=== PATIENT | female | born 2000 | race Caucasian/White ===

== ENCOUNTER 2023-11-28 13:33 | Inpatient (IN) ==
[2023-11-28] MEDS ORDERED: LIDOCAINE 1% LOCAL 20 ML VIAL INFIL PRN (13:40)
[2023-11-28] MEDS: LACTATED RINGER'S 1,000 ML IV PRN (14:00)
[2023-11-28 14:22] LABS: Hematocrit (blood only) 31.8 % (37.0-47.0); Hemoglobin 9.7 g/dl (12.0-16.0); Mean Corpuscular Hemoglobin 23.5 pg (25.0-34.0); Mean Corpuscular Hgb Conc 30.5 g/dL (32.0-36.0); Mean Corpuscular Volume 77.2 fL (80.0-100.0); Mean Platelet Volume 11.8 fL (9.4-12.4); Platelet Count 164 K/uL (130-400); RDW Coefficient of Variation 16.4 % (11.5-14.5); RDW Standard Deviation 45.3 fL (36.4-46.3); Red Blood Count 4.12 M/uL (4.20-5.40); White Blood Count 8.92 K/ul (4.8-10.8)
[2023-11-28] MEDS: LIDOCAINE 2%/EPINEPHRINE 1:200,000 20 ML PF ONE (15:17)
[2023-11-28] MEDS: SODIUM CHLORIDE 0.9% PF INJ 10 ML VIAL ONE (15:17)
[2023-11-28] MEDS: fentANYL 2 MCG/ML BUPIVacaine 0.125%-NSS 100ML BAG ONE (15:17)
[2023-11-28] MEDS: BUPIVACAINE 0.25% PF 30 ML VIAL ONE (15:17)
[2023-11-28] MEDS ORDERED: LIDOCAINE 2%/EPINEPHRINE 1:200,000 20 ML PF EPI STA (15:20)
[2023-11-28] MEDS ORDERED: SODIUM CHLORIDE 0.9% PF INJ 10 ML VIAL EPI PRN (15:20)
[2023-11-28] MEDS ORDERED: BUPIVACAINE 0.25% PF 30 ML VIAL EPI PRN (15:20)
[2023-11-28] MEDS ORDERED: ROPIVACAINE 0.5% PF 5 MG/ML 20 ML VIAL EPI PRN (15:20)
[2023-11-28] MEDS ORDERED: NALOXONE HCL 0.4 MG/1 ML VIAL/CARP IV PRN (15:20)
[2023-11-28] MEDS ORDERED: NALOXONE HCL 1 MG in SODIUM CHLORIDE 0.9% 1,000 ML IV PRN (15:20)
[2023-11-28] MEDS ORDERED: diphenhydrAMINE 50 MG/ML VIAL IV PRN (15:20)
[2023-11-28] MEDS ORDERED: fentANYL 2 MCG/ML BUPIVacaine 0.125%-NSS 100ML BAG EPI PRN (15:20)
[2023-11-28] MEDS ORDERED: ONDANSETRON INJ 2 MG/ML 2 ML VIAL IV PRN (15:20)
[2023-11-28] MEDS ORDERED: BUPIVACAINE 0.25% PF 30 ML VIAL EPI STA (15:20)
[2023-11-28] MEDS ORDERED: PROMETHAZINE HCL 6.25 MG in SODIUM CHLORIDE 0.9% 50 ML IV PRN (15:20)
[2023-11-28] MEDS ORDERED: fentaNYL citrate PF 100 MCG/2 ML VIAL EPI STA (15:20)
[2023-11-28] MEDS ORDERED: fentaNYL citrate PF 100 MCG/2 ML VIAL EPI PRN (15:20)
[2023-11-28] MEDS ORDERED: ePHEDrine sulfate 50 MG/ML AMP IV PRN (15:20)
[2023-11-28] MEDS ORDERED: LIDOCAINE 2% MPF LOCAL 5 ML VIAL EPI PRN (15:20)
[2023-11-28] MEDS ORDERED: SODIUM CHLORIDE 0.9% PF INJ 10 ML VIAL EPI STA (15:20)
[2023-11-28] MEDS ORDERED: NALBUPHINE HCL 5 MG in SYRINGE 0 ML IV PRN (15:20)
--- NOTE | 2023-11-28 15:20 | Anesthesiology Consultation ---
Date of Service November 28, 2023 Assessment & Plan Chart Review Chart Review: Patient NOT seen in Pre Admission Testing and Acceptable Risk for Labor Epidural Consults Requested none ASA ASA2 Proposed Anesthesia Anesthesia Type: Labor Epidural Risk / Benefits Reviewed With: PT / POA / Parent / Guardian, Accepts Plan and Informed Consent Obtained History Height/Weight Height: 5 ft 3 in Weight: 104.326 kg Allergies Allergy/AdvReac Type Severity Reaction Status Date / Time No Known Allergies Allergy Verified 11/26/23 15:00 Medications Home Medications Medication Instructions Recorded Confirmed Last Taken cetirizine 10 mg tablet (Zyrtec) 10 mg PO DAILY PRN Allergy Symptoms 10/28/23 11/28/23 11/28/23 09:00 duloxetine 30 mg capsule,delayed 30 mg PO DAILY 10/28/23 11/28/23 11/28/23 09:00 release (Cymbalta) vit 168-iron 27 mg-folic 1 cap PO DAILY 10/28/23 11/28/23 11/28/23 09:00 acid 800 mcg-omega3 235 mg capsule (One-A-Day -1) Active Medications Generic Name Dose Route Start Last Admin Trade Name Freq PRN Reason Stop Dose Admin Lactated Ringer's 1,000 mls @ 125 mls/hr 11/28/23 13:40 11/28/23 14:00 Lr IV 11/30/23 13:39 999 mls/hr .Q8H PRN Administration L&D Protocol Protocol Exercise / Class Metabolic Activity II 4-5 Yardwork/Stairs/Walk up hill Past Family History Family History (Updated 10/28/23 @ 09:14 by Gaye Bernard) Aunt Diabetes Hypertension Father Diabetes Hypertension Heart disease Blood clotting disorder Mother Breast cancer Diabetes Hypertension Liver disease Stroke Grandmother (Maternal) Breast cancer Other Myocardial infarction Past Surgical History Surgical History (Updated 10/28/23 @ 09:12 by Gaye Bernard) S/P wisdom tooth extraction Past Anesthesia History No Hx of Anesthesia Complications and No Family Hx of Anesthesia Complications History of PONV No Hx of PONV and No Hx of Motion Sickness Social History Smoking Status: Unknown if ever smoked Do You Dip or Chew Tobacco: No Hx Alcohol Use: No Hx Substance Use: No Physical Exam Vital Signs Last Vital Signs Temp 36.8 C 11/28/23 14:51 Pulse 90 11/28/23 15:17 Resp 18 11/28/23 14:51 BP 127/80 11/28/23 15:17 Pulse Ox 100 11/28/23 15:16 ENMT Mouth: no dentition abnormality Thyromental Distance: > or= 3.5 Finger Breadths Mallampati Class: II Neck normal visual inspection Respiratory normal respiratory effort Auscultation: lungs clear to auscultation bilaterally Cardiovascular Rate/Rhythm: regular rate and regular rhythm Psychiatric Orientation: alert Testing Laboratory Results 11/28/23 14:01
--- NOTE | 2023-11-28 15:36 | History & Physical Report ---
Date of Service November 28, 2023 Assessment & Plan (1) Encounter for induction of labor: Plan 23 y/o G 1 P0 37WGA presented for IOL Pitocin AROM as indicated Epidural PRN Monitor FHT Will need Rhogam 2nd dose after confirming baby's rhesus status. Admission and Anticipated Discharge Date Admission Date: November 28, 2023 History of Present Illness Chief Complaint: IOL Primary Care Provider: NO PCP 23 y/o female currently at 37WGA who is here for IOL. complicated by: LGA/Poly, Had regular appointments with OB Contractions irregular movement feeling them strong' No Fluid loss No Vaginal bleeding External FHT and external uterine monitors used: Category 1 tracing Labs: Lab Results OB Labs: Hepatitis B Surface Antigen Negative (Negative) 11/05/23 HIV (1&2) Ab and P24 Ag, 4th Gener Negative (Negative) 11/05/23 Labs Reviewed: Initial OB Labs Blood Type & RH A negative Antibody Screen Negative HCT/HGB39.5/13.6 [id number] Hep C IgG 13yrs+ Old Negative Pap Test NILM Chlamydia Negative Gonorrhea Negative Rubella Immune RPR Negative Urine Culture/Screen No Growth HBsAg HIV MCV83.8 QNatal Low risk CF negative 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 24-28 Week OB Labs (09/30/23) HCT/HGB34.0/11.4 Diabetes Screen (1hr)136 Antibody Screen Negative *RPR Non reactive Allergies Allergy/AdvReac Type Severity Reaction Status Date / Time banana Allergy Swelling Verified 11/28/23 16:21 of Lip/Tongue/Throat cantaloupe Allergy Swelling Verified 11/28/23 16:21 of Lip/Tongue/Throat cucumber Allergy Swelling Verified 11/28/23 16:21 of Lip/Tongue/Throat peach Allergy Swelling Verified 11/28/23 16:21 of Lip/Tongue/Throat pepper (genus Capsicum) Allergy Swelling Verified 11/28/23 16:22 of Lip/Tongue/Throat Home Medications Medication Instructions Recorded Confirmed Type cetirizine 10 mg tablet (Zyrtec) 10 mg PO DAILY PRN Allergy Symptoms 10/28/23 11/28/23 History duloxetine 30 mg capsule,delayed 30 mg PO DAILY 10/28/23 11/28/23 History release (Cymbalta) vit 168-iron 27 mg-folic 1 cap PO DAILY 10/28/23 11/28/23 History acid 800 mcg-omega3 235 mg capsule (One-A-Day -1) Patient History Medical History (Updated 11/28/23 @ 16:19 by Muna Olivera, ROSE) No known health problems Surgical History S/P wisdom tooth extraction Family History Aunt Diabetes Hypertension Father Diabetes Hypertension Heart disease Blood clotting disorder Mother Breast cancer Diabetes Hypertension Liver disease Stroke Grandmother (Maternal) Breast cancer Other Myocardial infarction Social History Smoking Status: Unknown if ever smoked Do You Dip or Chew Tobacco: No; Hx Alcohol Use: No Hx Substance Use: No Preferred Language: Lebanese Communication Ability: Effective Pearl Cutter Required: No Beliefs That Will Affect Care: None marital status: Single marital status details: Philip (26) [phone] Current Living Situation: Significant Other Current Living Situation Comment: lives alone, 3 dogs, current occupational status: unemployed Feels Safe at Home: Yes 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 No acute distress Cardiac: Regular rate and rhythm, no murmurs appreciated Respiratory: Lungs clear to auscultation bilaterally, No increased work of breathing Abdominal: Soft, non-tender, non-distended. Bowel sounds present. Gravid uterus. Extremities: 1+ lower extremity edema, calves non-tender bilaterally Genitourinary: OB Exam Abdomen: + vertex, + estimated weight (7-8 pounds) and + regular contractions Manual OB Exam: + cervical dilation 4 cm, + cervical effacement 100% and + station -2 OB Exam Monitor Tracing: + telecommunications support al FHT monitor used, + external uterine monitor used, + category I and + normal FHT variability Results & Data Vital Signs (Past 12 Hours) Vital Signs Temp Pulse Resp BP Pulse Ox 11/28/23 15:26 100 11/28/23 15:26 94 H 11/28/23 15:26 137/88 11/28/23 15:23 89 11/28/23 15:23 132/84 11/28/23 15:21 99 11/28/23 15:21 94 H 11/28/23 15:20 88 11/28/23 15:20 131/83 11/28/23 15:17 90 11/28/23 15:17 127/80 11/28/23 15:16 100 11/28/23 15:16 100 H 11/28/23 15:14 108 H 11/28/23 15:14 141/84 H 11/28/23 15:11 100 11/28/23 15:11 111 H 11/28/23 15:11 114 H 11/28/23 15:11 143/87 H 11/28/23 15:06 100 11/28/23 15:06 118 H 11/28/23 15:01 100 11/28/23 15:01 105 H 11/28/23 14:51 36.8 C 18 11/28/23 13:39 36.8 C 93 H 20 138/85 Code Status & VTE Plan VTE Prophylaxis Plan VTE Prophylaxis will be ordered: No Monitoring External Monitor 130/mod/+accel/-decel Tocodynamometer q5 Supervising Physician Co-Signing Physician Notes Resident Physician Supervision Note: I interviewed and examined the patient. Discussed with Dr. Coleman and agree with findings and plan as documented in the note. Any exceptions or clarifications are listed here: [None] Documented By: Ramila Etienne MD, FACOG Resident Activity Tracking Resident Involvement: Resident Care Provided Care Provided: OB Delivery
[2023-11-28] MEDS: fentaNYL citrate PF 100 MCG/2 ML VIAL ONE (15:54)
[2023-11-28] MEDS: ePHEDrine sulfate 50 MG/ML AMP ONE (15:54)
[2023-11-28] MEDS ORDERED: SODIUM CHLORIDE 0.9% 250 ML IV PRN (19:46)
[2023-11-28] MEDS: ACETAMINOPHEN 325 MG TAB PO PRN (20:42)
[2023-11-28] MEDS: OXYTOCIN 30 UNITS/NSS 30 UNITS/500 ML BAG IV PRN (21:59)
--- NOTE | 2023-11-28 22:19 | Anesthesia Procedure Note ---
Date of Service November 28, 2023 Anesthesia Post Epidural Note Vital Signs Vital Signs: Temp Pulse Resp BP Pulse Ox 36.6 C 124 H 18 134/71 99 11/28/23 19:30 11/28/23 22:16 11/28/23 21:00 11/28/23 22:16 11/28/23 22:16 Pain Intensity Abdomen: Pain Intensity: 2 Notes Mental Status: alert / awake / arousable Nausea / Vomiting: adequately controlled Pain: adequately controlled Airway Patency, RR, SpO2: stable & adequate BP & HR: stable & adequate Hydration State: stable & adequate Neuraxial Anesthesia: was administered and sensory block is resolving Anesthetic Complications: no major complications apparent and Pt Satisfied with anesthetic care Epidural: Removed without complications and With tip intact
[2023-11-28] MEDS ORDERED: oxyCODONE/ACETAMINOPHEN 5mg/325mg TAB PO PRN (22:23)
[2023-11-28] MEDS ORDERED: DIPHTHER/TETAN/PERTUS Vaccine (Tdap, Adol/Adult) 0.5mL IM ONE (22:23)
[2023-11-28] MEDS ORDERED: ACETAMINOPHEN 325 MG TAB PO PRN (22:23)
[2023-11-28] MEDS ORDERED: HYDROCORTISONE ACETATE 25 MG SUPP PR PRN (22:23)
[2023-11-28] MEDS ORDERED: bisacodyL 10 MG SUPP PR PRN (22:23)
[2023-11-28] MEDS ORDERED: OXYTOCIN 30 UNITS/NSS 30 UNITS/500 ML BAG IV PRN (22:23)
--- NOTE | 2023-11-28 22:56 | Delivery Summary ---
Vaginal Delivery Summary Date of Service November 28, 2023 Vaginal Delivery Summary and 1st Degree LAC Patient is a 23-year-old G1, P0 female EDC 12/16/2023 who presents at 37-3/7 weeks in active labor. She received effective epidural analgesia and membranes were ruptured for moderately stained meconium fluid. She progressed to full dilation with the urge to push. She pushed effectively over intact perineum for delivery of a viable female infant. After the head was delivered hyperflexion of the hips was performed to help to deliver the shoulders. The infant delivered easily and the rest the followed without difficulty. She was placed on the mother's abdomen for further attention and drying. After 1 minute the cord was clamped and cut. After cord blood was obtained, the placenta was expressed intact with a three-vessel cord. bleeding was controlled with dilute Pitocin and fundal massage. The first-degree perineal laceration was repaired with 3-0 chromic in usual fashion. QBL was 200 cc. Baby was taken to the warmer for further attention and stimulation she also required some blow- by oxygen. MNP Vaginal Delivery Charge Delivery Type Details: and 1st Degree LAC
[2023-11-28] MEDS: IBUPROFEN 600 MG TAB PO PRN (23:16)
[2023-11-29 07:01] LABS: Hematocrit (blood only) 28.3 % (37.0-47.0); Hemoglobin 8.7 g/dl (12.0-16.0); Mean Corpuscular Hemoglobin 24.1 pg (25.0-34.0); Mean Corpuscular Hgb Conc 30.7 g/dL (32.0-36.0); Mean Corpuscular Volume 78.4 fL (80.0-100.0); Mean Platelet Volume 12.3 fL (9.4-12.4); Platelet Count 132 K/uL (130-400); RDW Coefficient of Variation 16.4 % (11.5-14.5); RDW Standard Deviation 47.2 fL (36.4-46.3); Red Blood Count 3.61 M/uL (4.20-5.40); White Blood Count 9.43 K/ul (4.8-10.8)
--- NOTE | 2023-11-29 07:57 | Obstetrical Progress Note ---
Date of Service <Austen Coleman MD - Last Filed: 11/29/23 08:01> November 29, 2023 Assessment & Plan <Austen Coleman MD - Last Filed: 11/29/23 08:01> (1) Encounter for assessment: PPD 1: stable, routine management -Patient is voiding and ambulating on their own power -Pain is well controlled on as needed analgesia -Tolerating regular diet without nausea or vomiting -Planned to Bottle feed * pt will need 2nd dose of IV Rhogam after baby's blood type test. * Reassess d/c readiness tomorrow * 6 weeks OB outpatient follow-up visit type: exam and care immediately after delivery Qualified Code(s): Z39.0 - Encounter for care and examination of mother immediately after delivery <Ramila Etienne MD, FACOG - Last Filed: 11/29/23 08:47> (1) Encounter for assessment: Subjective <Austen Coleman MD - Last Filed: 11/29/23 08:01> Ambulation: ambulating normally Voiding: no voiding problems Diet Tolerance:: regular diet Lochia:: Moderate Feeding Type:: breast feeding Pt is a 23 y/o female who is now PPD#1 following at 37weeks. Reports feeling well overall this morning. minimal abdominal cramping and 4/10 pain, well managed on analgesics. Voiding ok. Tolerating meals and able to ambulate some. passing gas but no bowel movements. Some persistent lochia with overall improvement as of this morning.bottle feeding. Review of Systems -Denies fever or chills -Denies dyspnea, chest pain, or palpitations -Denies breast pain -Denies dysuria -Denies headache or changes in vision Physical Exam <Austen Coleman MD - Last Filed: 11/29/23 08:01> General: Alert and oriented. No acute distress Cardiac: Regular rate and rhythm, no murmurs appreciated Respiratory: Lungs clear to auscultation bilaterally, No increased work of breathing Abdominal: Soft, non-tender, non-distended. Bowel sounds present. Gravid uterus. Extremities: 1+ lower extremity edema, calves non-tender bilaterally Results & Data <Austen Se Coleman MD - Last Filed: 11/29/23 08:01> Vital Signs (Past 12 Hours) Vital Signs Temp Pulse Pulse Resp BP BP Pulse Ox 11/29/23 05:10 36.8 C 100 H 20 114/74 98 11/29/23 01:10 37.0 C 106 H 20 131/83 69 L 11/29/23 00:31 113 H 146/85 H 11/29/23 00:16 115 H 146/80 H 11/29/23 00:15 36.7 C 20 11/29/23 00:01 114 H 144/84 H 11/28/23 23:46 117 H 11/28/23 23:46 152/92 H 11/28/23 23:45 18 11/28/23 23:31 123 H 11/28/23 23:31 149/86 H 11/28/23 23:16 121 H 11/28/23 23:16 131/81 11/28/23 23:15 18 11/28/23 23:01 125 H 11/28/23 23:01 147/84 H 11/28/23 23:00 18 11/28/23 22:46 125 H 11/28/23 22:46 145/83 H 11/28/23 22:45 18 11/28/23 22:31 116 H 11/28/23 22:31 142/81 H 11/28/23 22:30 18 11/28/23 22:16 99 11/28/23 22:16 124 H 11/28/23 22:16 129 H 11/28/23 22:16 134/71 11/28/23 22:15 36.7 C 20 11/28/23 22:11 100 11/28/23 22:11 121 H 11/28/23 22:06 100 11/28/23 22:06 124 H 11/28/23 22:03 122 H 11/28/23 22:03 118/56 L 11/28/23 22:01 98 11/28/23 22:01 120 H 11/28/23 21:58 93 11/28/23 21:58 122 H 11/28/23 21:56 90 11/28/23 21:56 137 H 11/28/23 21:52 89 L 11/28/23 21:52 143 H 11/28/23 21:51 96 11/28/23 21:51 130 H 11/28/23 21:48 122 H 11/28/23 21:48 117/53 L 11/28/23 21:47 87 L 11/28/23 21:47 114 H 11/28/23 21:46 98 11/28/23 21:46 121 H 11/28/23 21:41 94 11/28/23 21:41 128 H 11/28/23 21:36 98 11/28/23 21:36 142 H 11/28/23 21:35 89 L 11/28/23 21:35 138 H 11/28/23 21:31 100 11/28/23 21:31 152 H 11/28/23 21:30 20 11/28/23 21:30 20 11/28/23 21:26 98 11/28/23 21:26 115 H 11/28/23 21:21 100 11/28/23 21:21 110 H 11/28/23 21:18 122 H 11/28/23 21:18 134/85 11/28/23 21:16 99 11/28/23 21:16 118 H 11/28/23 21:11 99 11/28/23 21:11 118 H 11/28/23 21:06 99 11/28/23 21:06 111 H 11/28/23 21:02 107 H 11/28/23 21:02 143/84 H 11/28/23 21:01 100 11/28/23 21:01 110 H 11/28/23 21:00 18 11/28/23 21:00 18 11/28/23 20:56 99 11/28/23 20:56 99 H 11/28/23 20:51 100 11/28/23 20:51 125 H 11/28/23 20:48 104 H 11/28/23 20:48 138/85 11/28/23 20:46 100 11/28/23 20:46 117 H 11/28/23 20:41 100 11/28/23 20:41 123 H 11/28/23 20:36 100 11/28/23 20:36 119 H 11/28/23 20:33 114 H 11/28/23 20:33 131/89 11/28/23 20:31 100 11/28/23 20:31 120 H 11/28/23 20:30 20 11/28/23 20:30 20 11/28/23 20:26 100 11/28/23 20:26 112 H 11/28/23 20:21 100 11/28/23 20:21 115 H 11/28/23 20:19 116 H 11/28/23 20:19 130/83 11/28/23 20:16 100 11/28/23 20:16 125 H 11/28/23 20:11 100 11/28/23 20:11 111 H 11/28/23 20:06 100 11/28/23 20:06 123 H 11/28/23 20:06 91 11/28/23 20:06 123 H 11/28/23 20:02 117 H 11/28/23 20:02 139/77 11/28/23 20:01 100 11/28/23 20:01 115 H 11/28/23 20:00 20 11/28/23 20:00 20 O2 Del Method 11/29/23 05:10 Room Air 11/29/23 01:10 Room Air 11/29/23 00:31 11/29/23 00:16 11/29/23 00:15 11/29/23 00:01 11/28/23 23:46 11/28/23 23:46 11/28/23 23:45 11/28/23 23:31 11/28/23 23:31 11/28/23 23:16 11/28/23 23:16 11/28/23 23:15 11/28/23 23:01 11/28/23 23:01 11/28/23 23:00 11/28/23 22:46 11/28/23 22:46 11/28/23 22:45 11/28/23 22:31 11/28/23 22:31 11/28/23 22:30 11/28/23 22:16 11/28/23 22:16 11/28/23 22:16 11/28/23 22:16 11/28/23 22:15 11/28/23 22:11 11/28/23 22:11 11/28/23 22:06 11/28/23 22:06 11/28/23 22:03 11/28/23 22:03 11/28/23 22:01 11/28/23 22:01 11/28/23 21:58 11/28/23 21:58 11/28/23 21:56 11/28/23 21:56 11/28/23 21:52 11/28/23 21:52 11/28/23 21:51 11/28/23 21:51 11/28/23 21:48 11/28/23 21:48 11/28/23 21:47 11/28/23 21:47 11/28/23 21:46 11/28/23 21:46 11/28/23 21:41 11/28/23 21:41 11/28/23 21:36 11/28/23 21:36 11/28/23 21:35 11/28/23 21:35 11/28/23 21:31 11/28/23 21:31 11/28/23 21:30 11/28/23 21:30 11/28/23 21:26 11/28/23 21:26 11/28/23 21:21 11/28/23 21:21 11/28/23 21:18 11/28/23 21:18 11/28/23 21:16 11/28/23 21:16 11/28/23 21:11 11/28/23 21:11 11/28/23 21:06 11/28/23 21:06 11/28/23 21:02 11/28/23 21:02 11/28/23 21:01 11/28/23 21:01 11/28/23 21:00 11/28/23 21:00 11/28/23 20:56 11/28/23 20:56 11/28/23 20:51 11/28/23 20:51 11/28/23 20:48 11/28/23 20:48 11/28/23 20:46 11/28/23 20:46 11/28/23 20:41 11/28/23 20:41 11/28/23 20:36 11/28/23 20:36 11/28/23 20:33 11/28/23 20:33 11/28/23 20:31 11/28/23 20:31 11/28/23 20:30 11/28/23 20:30 11/28/23 20:26 11/28/23 20:26 11/28/23 20:21 11/28/23 20:21 11/28/23 20:19 11/28/23 20:19 11/28/23 20:16 11/28/23 20:16 11/28/23 20:11 11/28/23 20:11 11/28/23 20:06 11/28/23 20:06 11/28/23 20:06 11/28/23 20:06 11/28/23 20:02 11/28/23 20:02 11/28/23 20:01 11/28/23 20:01 11/28/23 20:00 11/28/23 20:00 Supervising Physician <Ramila Etienne MD, FACOG - Last Filed: 11/29/23 08:47> Co-Signing Physician Notes Resident Physician Supervision Note: I interviewed and examined the patient. Discussed with Dr. Coleman and agree with findings and plan as documented in the note. Any exceptions or clarifications are listed here: [None] Documented By: Ramila Etienne MD, FACOG Resident Activity Tracking <Austen Coleman MD - Last Filed: 11/29/23 08:01> Resident Involvement: Resident Care Provided Care Provided: OB Delivery
[2023-11-29] MEDS: PRENATAL VITAMIN 1 TAB PO SCH (08:07)
[2023-11-29] MEDS: DOCUSATE SODIUM 100 MG CAP PO SCH (08:07)
[2023-11-29] MEDS: DULoxetine HCL 30 MG CAP PO SCH (11:12)
[2023-11-29] MEDS: BENZOCAINE 20% SPRY 85 APPLN/85 GM CAN EXT PRN (17:21)
[2023-11-29] MEDS: bisacodyL 5 MG TABEC PO SCH (20:30)
[2023-11-30 07:42] LABS: Hemoglobin 7.9 g/dl (12.0-16.0)
--- NOTE | 2023-11-30 09:49 | Obstetrical Progress Note ---
Date of Service November 30, 2023 Assessment & Plan (1) Encounter for assessment: Medically ready for D/C, may need nesting. visit type: exam and care immediately after delivery Qualified Code(s): Z39.0 - Encounter for care and examination of mother immediately after delivery Subjective Ambulation: ambulating normally Voiding: no voiding problems Passing Gas:: Yes Diet Tolerance:: regular diet Lochia:: Small Feeding Type:: breast feeding Physical Exam Constitutional WD/WN, vitals as above Eyes PERRL, conjunctivae normal, anicteric sclerae Neck normal visual inspection Respiratory normal respiratory effort and able to speak in complete sentences; no respiratory distress and no labored breathing Cardiovascular Rate/Rhythm: regular rate and regular rhythm Extremities: no edema Chest (Breasts) Chest: normal inspection of chest Gastrointestinal (Abdomen) Inspection/Auscultation: abdomen normal to inspection Soft, postgravid Psychiatric A+Ox3, euthymic affect Genitourinary OB Exam Abdomen: + fundal height Fundus: + firm and + relation to umbilicus (fundus just below umbilicus); not tender Results & Data Vital Signs (Past 12 Hours) Vital Signs Temp Pulse Resp BP Pulse Ox O2 Del Method 11/30/23 08:08 98.4 F 110 H 16 117/70 98 Room Air 11/29/23 22:24 100 H 20 118/76 97 Room Air
--- NOTE | 2023-12-02 13:09 | Coding Query ---
CODING QUERY To promote full compliance with coding requirements relating to patient care, provider participation is requested in all cases of mill work uncertainty. Please assist us with the question(s) below: Coding Question(s): Per the H&P: " complicated by: LGA/Poly." However, the documentation of these conditions didn't follow through to discharge. Can you please clarify the status of LGA/poly by putting an 'x' in the applicable set of parenthesis below? Polyhydramnios POA ( X ) Polyhydramnios ruled out ( ) Large for Gestational Age POA (X ) Large for Gestational Age ruled out ( ) Physician's Response(s): Thank you Macey Nguyễn Principal Diagnosis: "that condition established after study, to be chiefly responsible for occasioning the admission of the patient to the hospital for care." Co-Existing Principal Diagnosis: "when two or more diagnoses equally meet the criteria for principal diagnosis as determined by the circumstances of admission, diagnostic work up, and/or therapy provided, and the Alphabetic Index, Tabular List, or another coding guideline does not provide sequencing direction, any one of the diagnoses may be sequenced first." "When the physician has documented what appears to be a current diagnosis in the body of the record, but has not included the diagnosis in the final diagnostic statement, the physician should be asked whether the diagnosis should be added." (Source [facility]oding [facility] 2 QTR90. p3-4) SARAH
== END 2023-11-30 18:55 | disposition home or self-care (01) | DRG 807 ==
LOC: OPB 13:33 → 4S1 13:34 → 4E2 11-29 01:22